=== PATIENT | male | born 1985 | race Caucasian/White ===

== ENCOUNTER → 2019-05-14 | Day surgery (SDC) | payer OTHER ==
[2019-05-08 11:07] VITALS: BMI 22.4
[~2019-05-14] MED LIST: BENZOCAINE SPRAY 1 CAN MUCOUS MEM ONE; MIDAZOLAM 2 MG/2 ML VIAL IV ONE; SODIUM CHLORIDE 0.9% 500 ML 500 ML IV ONE; fentaNYL (PF) 50 MCG/ML 2 ML AMP ONE
[2019-05-14 11:05] VITALS: RESP 18
[2019-05-14] MEDS: fentaNYL (PF) 50 MCG/ML 2 ML AMP IV ONE ×2 (12:43→12:47)
[2019-05-14] MEDS: MIDAZOLAM 2 MG/2 ML VIAL IV ONE ×2 (12:43→12:47)
--- NOTE | 2019-05-14 13:59 | ECHOT ---
TRANSESOPHAGEAL ECHOCARDIOGRAM DATE OF SERVICE: 05/14/2019 PERFORMING PHYSICIAN: Evaristo Albright MD. PROCEDURE PERFORMED: Transesophageal echocardiogram. INDICATION: This is a 34-year-old gentleman who was diagnosed recently with a bicuspid aortic valve and dilated aortic root. He was brought today to undergo transesophageal echocardiogram. COMPLICATION: None. LEVEL OF SEDATION: Moderate with sedation length of 15 minutes. PROCEDURE DESCRIPTION: After obtaining an informed consent, the patient was brought to the transesophageal echocardiogram suite. The patient was turned into left lateral position. A bite guard was placed after the throat was sprayed using lidocaine. Subsequently the patient after performing conscious sedation, where the patient was given a total of 5 mg of Versed and 100 mcg of fentanyl. The transesophageal echocardiogram was advanced through the bite guard to the mid esophagus where a 2D echocardiogram images, color Doppler images, continuous-wave Doppler, and pulse with Dopplers were performed. The procedure was completed without any complication. FINDINGS: The left ventricular dimension and systolic function appeared to be within normal limits. The ejection fraction appeared to be in the range of 60%. The right ventricle appeared to be within normal limits for dimension. The left atrium appeared to be mildly dilated. The left atrial appendage appeared to be free from any thrombus. The interatrial septum appeared to be intact by color-flow Doppler. We did not perform a contrast study because the patient was agitated. The aortic valve is bicuspid valve with evidence of fusion of the right and left coronary cusps and evidence of mild to moderate aortic insufficiency. The mitral valve seems to be mildly thickened with mild MR. There was normal tricuspid valve and pulmonic valve. The aortic root was dilated at the level of the sinus of Valsalva as well as sinus tubular junction and also beyond the sinus tubular junction. CONCLUSION: 1. Bicuspid aortic valve with evidence of fusion of the right and left coronary cusps and evidence of mild to moderate aortic insufficiency. 2. Dilated aortic root at the level of the sinus of Valsalva, sinus tubular junction and beyond the sinus tubular junction. 3. Normal left ventricular dimension and systolic function. 4. Normal right ventricular dimension and systolic function. 5. Normal mitral valve leaflets with mild mitral regurgitation. 6. Normal tricuspid valve and pulmonic valve. 7. Normal left atrial appendage. 8. Intact interatrial septum by color-flow Doppler. 9. No evidence of pericardial effusion. MMODL / IJN: [id number] /
[2019-05-14 14:55] VITALS: BP 130/81; PULSE 98
== END ==
LOC: CATHCVL 10:40
PROVIDERS: ATTEND Internal Medicine Interventional Cardiology
DX: Q23.1 Congenital insufficiency of aortic valve (principal); I08.0 Rheumatic disorders of both mitral and aortic valves; I10 Essential (primary) hypertension; Z79.899 Other long term (current) drug therapy
CPT/HCPCS: 93312; 93225; 93320; J2250; J3010